=== PATIENT | male | born 1980 | race Caucasian/White ===

== ENCOUNTER 2021-03-28 00:48 | Emergency (ER) | payer OTHER ==
[2021-03-28 01:10] VITALS: BP 137/95; PULSE 92; TEMP 98.6; BMI 32.4
[2021-03-28] MEDS ORDERED: LORazepam 2 MG TABLET PO ONE ×2 (01:26)
[2021-03-28] MEDS ORDERED: LORazepam 1 MG TABLET ONE (01:30)
== END 2021-03-28 03:44 | disposition home or self-care (01) ==
LOC: EDBD 00:48 → JER 00:48
DX: F41.9 Anxiety disorder, unspecified (principal)
CPT/HCPCS: 99283-25